=== PATIENT | male | born 1940 | race Caucasian/White ===

== ENCOUNTER 2021-07-08 11:24 | Emergency (ER) | payer MEDICARE, OTHER ==
[2021-07-08] MEDS ORDERED: Zofran 4 MG/2 ML VIAL IV ONE (11:27)
--- NOTE | 2021-07-08 11:27 | ERPHSYRPT ---
- History of Present Illness Time Seen by Provider: 07/08/21 11:27 Historian: patient Exam Limitations: no limitations Physician History: This is an 80-year-old white male who is diabetic and has hypothyroidism and presents with right flank pain that is been present for about a week. However, this morning the pain suddenly worsened and he is very uncomfortable. Patient has had to have lithotripsy in the past for his most recent ureterolithiasis. Patient denies chest pain. He denies abdominal pain and he denies shortness of breath. He has had no fevers or chills. Timing/Duration: today Activities at Onset: none Quality: aching, stabbing Abdominal Pain Onset Location: flank (Right) Pain Radiation: groin (Right) Severity of Pain-Max: moderate Severity of Pain-Current: moderate Modifying Factors: Improves With: nothing Associated Symptoms: No chest pain, No fever/chills, No nausea, No neck pain, No shortness of breath, No vomiting Previous symptoms: same symptoms as today, no recent treatment Allergies/Adverse Reactions: No Known Drug Allergies Allergy (Verified 07/08/21 11:40) Home Medications: Glipizide 10 mg [Glucotrol 10 MG] 10 mg PO DAILY 02/24/14 [History] Metformin HCl 500 mg [Glucophage 500 MG] 500 mg PO DAILY 02/24/14 [H istory] Atorvastatin Calcium [Lipitor 20MG Tablet] 20 mg PO DAILY 07/08/21 [History] Levothyroxine Sodium 112 Mcg [Synthroid 112 Mcg] 112 mcg PO DAILY 07/08/21 [History] Ramipril [Altace] 10 mg PO DAILY 07/08/21 [History] Hx Influenza Vaccination/Date Given: No Hx Pneumococcal Vaccination/Date Given: No Travel Risk - International Travel Have you traveled outside of the country in past 3 weeks: No - Coronavirus Screening Close contact with a COVID-19 positive Pt in past 14-21 Days: No - Review of Systems Constitutional: No Symptoms Eyes: No Symptoms Ears, Nose, & Throat: No Symptoms Respiratory: No Symptoms Cardiac: No Symptoms Abdominal/Gastrointestinal: No Symptoms Genitourinary Symptoms: Flank Pain Musculoskeletal: No Symptoms Skin: No Symptoms Neurological: No Symptoms Psychological: No Symptoms Endocrine: No Symptoms Hematologic/Lymphatic: No Symptoms Immunological/Allergic: No Symptoms All Other Systems: Reviewed and Negative - Past Medical History Pertinent Past Medical History: Yes Neurological History: No Pertinent History ENT History: No Pertinent History Cardiac History: Hypertension Respiratory History: No Pertinent History Endocrine Medical History: Diabetes Type II - Past Surgical History Past Surgical History: Yes Gastrointestinal: Appendectomy Musculoskeletal: Orthopedic Surgery - Social History Smoking Status: Never smoker Exposure to second hand smoke: No Drug Use: none Patient Lives Alone: No - Nursing Vital Signs Nursing Vital Signs: Initial Vital Signs Temperature 97.9 F 07/08/21 11:34 Pulse Rate 117 H 07/08/21 11:34 Respiratory Rate 22 07/08/21 11:34 Blood Pressure 166/116 07/08/21 11:34 O2 Sat by Pulse Oximetry 99 07/08/21 11:34 Pain Scale Pain Intensity [Right Lower 5 Back] Pain Intensity 5 - Physical Exam General Appearance: mild distress, alert, anxiety Eye Exam: PERRL/EOMI, eyes nml inspection Ears, Nose, Throat Exam: normal ENT inspection, moist mucous membranes Neck Exam: normal inspection, non-tender, supple, full range of motion Respiratory Exam: normal breath sounds, lungs clear, airway intact, No chest tenderness, No respiratory distress Cardiovascular Exam: tachycardia Gastrointestinal/Abdomen Exam: soft, normal bowel sounds, No tenderness Rectal Exam: not done Back Exam: normal inspection, normal range of motion, CVA tenderness, No vertebral tenderness (Right) Extremity Exam: normal inspection, normal range of motion, pelvis stable Neurologic Exam: alert, oriented x 3, cooperative, retirement specialist II-XII nml as tested, normal mood/affect, nml cerebellar function, nml station & gait, sensation nml Skin Exam: normal color, warm, dry Lymphatic Exam: No adenopathy SpO2 Interpretation: normal O2 Delivery: Room Air - Course Nursing assessment & vital signs reviewed: Yes Ordered Tests: Active Orders 24 hr Category Date Time Status IV Insertion STAT Care 07/08/21 11:27 Active ABDOMEN AND PELVIS W/0 CONTRAS [CT] Stat Exams 07/08/21 12:04 Completed AMYLASE Stat Lab 07/08/21 11:50 Completed CBC W DIFF Stat Lab 07/08/21 11:50 Completed CMP Stat Lab 07/08/21 11:50 Completed LIPASE Stat Lab 07/08/21 11:50 Completed Lactic Acid Stat Lab 07/08/21 11:50 Completed UA W/RFX UR CULTURE Stat Lab 07/08/21 11:34 Completed Medication Summary Generic Name Dose Route Start Last Admin Trade Name Avi PRN Reason Stop Dose Admin Sodium Chloride 1,000 mls @ 100 mls/hr 07/08/21 11:30 07/08/21 11:50 Sodium Chloride 0.9% 1000 Ml IV 08/07/21 11:29 100 mls/hr .Q10H CAMELIA Administration Discontinued Medications Generic Name Dose Route Start Last Admin Trade Name Avi PRN Reason Stop Dose Admin Hydromorphone HCl 0.5 mg 07/08/21 11:31 07/08/21 11:50 Hydromorphone 1 Mg/1ml Inj 1 Mg/Ml Syringe IV 07/08/21 11:32 0.5 mg STAT ONE Administration Hydromorphone HCl Confirm 07/08/21 11:47 Hydromorphone 1 Mg/1ml Inj 1 Mg/Ml Syringe Administered 07/08/21 11:48 Dose 1 mg .ROUTE .STK-MED ONE Ketorolac Tromethamine 30 mg 07/08/21 11:31 07/08/21 11:51 Ketorolac Tromethamine 30 Mg/Ml Inj IV 07/08/21 11:32 30 mg STAT ONE Administration Ketorolac Tromethamine Confirm 07/08/21 11:47 Ketorolac Tromethamine 30 Mg/Ml Inj Administered 07/08/21 11:48 Dose 30 mg .ROUTE .STK-MED ONE Ondansetron HCl 4 mg 07/08/21 11:27 07/08/21 11:50 Ondansetron Hcl 4 Mg/2 Ml Vial IV 07/08/21 11:28 4 mg STAT ONE Administration Ondansetron HCl Confirm 07/08/21 11:47 Ondansetron Hcl 4 Mg/2 Ml Vial Administered 07/08/21 11:48 Dose 4 mg .ROUTE .STK-MED ONE Lab/Rad Data: Laboratory Result Diagrams 07/08/21 11:50 07/08/21 11:50 Laboratory Results 07/08/21 07/08/21 07/08/21 Range/Units 11:50 11:50 11:50 WBC 5.2 (4.0-10.5) K/mm3 RBC 3.89 L (4.1-5.6) M/mm3 Hgb 13.2 (12.5-18.0) gm/dl Hct 39.2 L (42-50) % MCV 100.8 H (78-100) fl MCH 33.9 H (26-32) pg MCHC 33.7 (32-36) g/dl RDW 14.2 H (11.5-14.0) % Plt Count 230 (150-450) K/mm3 MPV 9.7 (7.5-11.0) fl Gran % 61.8 (36.0-66.0) % Eos # (Auto) 0.06 (0-0.5) Absolute Lymphs (auto) 1.31 (1.0-4.6) Absolute Monos (auto) 0.62 (0.0-1.3) Lymphocytes % 25.0 (24.0-44.0) % Monocytes % 11.9 (0.0-12.0) % Eosinophils % 1.1 (0.00-5.0) % Basophils % 0.2 (0.0-0.4) % Absolute Granulocytes 3.23 (1.4-6.9) Basophils # 0.01 (0-0.4) Sodium 136 L (137-145) mmol/L Potassium 5.5 H (3.5-5.1) mmol/L Chloride 97 L (98-107) mmol/L Carbon Dioxide 27 (22-30) mmol/L Anion Gap 17.9 H (5-15) MEQ/L BUN 24 H (9-20) mg/dL Creatinine 1.36 H (0.66-1.25) mg/dL Estimated GFR 53.6 ML/MIN Glucose 210 H (74-106) mg/dL Lactic Acid 2.9 H (0.4-2.0) Calcium 10.1 (8.4-10.2) mg/dL Total Bilirubin 0.60 (0.2-1.3) mg/dL AST 25 (17-59) U/L ALT 25 (0-50) U/L Alkaline Phosphatase 91 (38-126) U/L Serum Total Protein 7.8 (6.3-8.2) g/dL Albumin 4.8 (3.5-5.0) g/dL Amylase 86 (30-110) U/L Lipase 256 (23-300) U/L Urine Color (YELLOW) Urine Appearance (CLEAR) Urine pH (5-6) Ur Specific [place] (1.005-1.025) Urine Protein (Negative) Urine Ketones (NEGATIVE) Urine Blood (0-5) Humberto/ul Urine Nitrite (NEGATIVE) Urine Bilirubin (NEGATIVE) Urine Urobilinogen (0-1) mg/dL Ur Leukocyte Esterase (NEGATIVE) Urine WBC (Auto) (0-5) /HPF Urine RBC (Auto) (0-2) /HPF Urine Culture Reflexed (NO) Urine Glucose (NEGATIVE) mg/dL 07/08/21 Range/Units 11:34 WBC (4.0-10.5) K/mm3 RBC (4.1-5.6) M/mm3 Hgb (12.5-18.0) gm/dl Hct (42-50) % MCV (78-100) fl MCH (26-32) pg MCHC (32-36) g/dl RDW (11.5-14.0) % Plt Count (150-450) K/mm3 MPV (7.5-11.0) fl Gran % (36.0-66.0) % Eos # (Auto) (0-0.5) Absolute Lymphs (auto) (1.0-4.6) Absolute Monos (auto) (0.0-1.3) Lymphocytes % (24.0-44.0) % Monocytes % (0.0-12.0) % Eosinophils % (0.00-5.0) % Basophils % (0.0-0.4) % Absolute Granulocytes (1.4-6.9) Basophils # (0-0.4) Sodium (137-145) mmol/L Potassium (3.5-5.1) mmol/L Chloride (98-107) mmol/L Carbon Dioxide (22-30) mmol/L Anion Gap (5-15) MEQ/L BUN (9-20) mg/dL Creatinine (0.66-1.25) mg/dL Estimated GFR ML/MIN Glucose (74-106) mg/dL Lactic Acid (0.4-2.0) Calcium (8.4-10.2) mg/dL Total Bilirubin (0.2-1.3) mg/dL AST (17-59) U/L ALT (0-50) U/L Alkaline Phosphatase (38-126) U/L Serum Total Protein (6.3-8.2) g/dL Albumin (3.5-5.0) g/dL Amylase (30-110) U/L Lipase (23-300) U/L Urine Color YELLOW (YELLOW) Urine Appearance CLEAR (CLEAR) Urine pH 5.0 (5-6) Ur Specific [place] 1.014 (1.005-1.025) Urine Protein 30 (Negative) Urine Ketones TRACE (NEGATIVE) Urine Blood NEGATIVE (0-5) Humberto/ul Urine Nitrite NEGATIVE (NEGATIVE) Urine Bilirubin NEGATIVE (NEGATIVE) Urine Urobilinogen NEGATIVE (0-1) mg/dL Ur Leukocyte Esterase NEGATIVE (NEGATIVE) Urine WBC (Auto) NONE (0-5) /HPF Urine RBC (Auto) NONE (0-2) /HPF Urine Culture Reflexed NO (NO) Urine Glucose 150 (NEGATIVE) mg/dL - Progress Progress: improved, pain not gone completely Progress Note: 07/08/21 12:47 CAT scan of the abdomen and pelvis without contrast shows a right 1 cm partially calcified right renal cortical hypodense lesion. Recommendation is to obtain an ultrasound to differentiate solid versus cystic. This can be performed as an outpatient. There are no acute intra-abdominal or intrapelvic findings. There is calcified aorta without evidence of a abdominal aortic aneurysm. There is no evidence of a renal calculus or obstructive uropathy. 07/08/21 12:48 Counseled pt/family regarding: lab results, diagnosis, need for follow-up, rad results - Departure Departure Disposition: Home Clinical Impression: Right flank pain, Right renal mass Condition: Stable Critical Care Time: No Referrals: MATHIEU LAM [Primary Care Provider] - Follow up/PCP as directed Additional Instructions: Drink plenty of fluids. Follow-up with your urologist for further evaluation including an ultrasound of the right kidney. Continue your medications as prescribed.
[2021-07-08] MEDS ORDERED: Sodium Chloride 0.9% 1000 ML 1,000 ML IV SCH (11:30)
[2021-07-08] MEDS ORDERED: Hydromorphone 1 mg/ml Injection IV ONE (11:31)
[2021-07-08] MEDS ORDERED: TORAdol 30 mg Injection IV ONE (11:31)
[2021-07-08] MEDS ORDERED: Hydromorphone 1 mg/ml Injection ONE (11:47)
[2021-07-08] MEDS ORDERED: TORAdol 30 mg Injection ONE (11:47)
[2021-07-08] MEDS ORDERED: Sodium Chloride 0.9% 1000 ML 1,000 ML ONE (11:47)
[2021-07-08] MEDS ORDERED: Zofran 4 MG/2 ML VIAL ONE (11:47)
[2021-07-08 11:56] LABS: Appearance CLEAR (CLEAR); Bilirubin NEGATIVE (NEGATIVE); Blood NEGATIVE Ery/ul (0-5); Glucose 150 mg/dL (NEGATIVE); Ketones TRACE (NEGATIVE); Leukocyte Esterase NEGATIVE (NEGATIVE); Nitrite NEGATIVE (NEGATIVE); Protein,Urine Dip 30 (Negative); Specific Gravity 1.014 (1.005-1.025); Urobilinogen NEGATIVE mg/dL (0-1)
[2021-07-08 12:03] LABS: Absolute Neutrophil Ct (ANC) 3.23 (1.4-6.9); Basophil (Absolute #) 0.01 (0-0.4); Eosinophil % 1.1 % (0.00-5.0); Eosinophil (Absolute #) 0.06 (0-0.5); Hematocrit 39.2 % (42-50); Hemoglobin 13.2 gm/dl (12.5-18.0); Lymphocyte (Absolute #) 1.31 (1.0-4.6); Mean Cell Volume 100.8 fl (78-100); Mean Corpuscular Hemoglobin 33.9 pg (26-32); Mean Corpuscular Hgb Concent. 33.7 g/dl (32-36); Mean Platelet Volume 9.7 fl (7.5-11.0); Monocyte (Absolute #) 0.62 (0.0-1.3); Monocytes % 11.9 % (0.0-12.0); Neutrophil % 61.8 % (36.0-66.0); Platelet Count 230 K/mm3 (150-450); Red Blood Count 3.89 M/mm3 (4.1-5.6); Red Cell Distribution Width 14.2 % (11.5-14.0); White Blood Count 5.2 K/mm3 (4.0-10.5)
[2021-07-08 12:05] LABS: ALBUMIN 4.8 g/dL (3.5-5.0); ANION GAP 17.9 MEQ/L (5-15); BILIRUBIN,TOTAL 0.6 mg/dL (0.2-1.3); Calcium 10.1 mg/dL (8.4-10.2); Creatinine 1 1.36 mg/dL (0.66-1.25); EST GLOMERULAR FILTRATION RATE 53.6 ML/MIN; Potassium 5.5 mmol/L (3.5-5.1); Total Protein 7.8 g/dL (6.3-8.2)
--- NOTE | 2021-07-08 12:33 | XRAY ---
Indication: Right flank pain. History of stones. Multiple contiguous axial images obtained through the abdomen and pelvis without contrast using renal stone protocol. Comparison: None Lung bases demonstrates minimal bibasilar subsegmental atelectasis/scarring. No infiltrate or effusion. Heart not enlarged. No renal calculus or evidence for obstructive uropathy in either system. Right mid kidney demonstrates 1 cm partially calcified cortical hypodense lesion. Enlarged prostate gland impresses on the base of the bladder. Noncontrasted stomach and bowel loops appear nonobstructed. Small descending duodenal diverticulum. Appendectomy reported. Minimal scattered descending and sigmoid diverticulosis without diverticulitis. Tiny splenic calcified granulomas. No free fluid/air. Remaining liver, gallbladder, pancreas, spleen, adrenal glands, kidneys, ureters, and bladder are unremarkable for noncontrast exam. Minimal scattered aortoiliac calcifications without AAA. Osseous structures intact with multilevel bridging/nonbridging osteophytes of the visualized thoracolumbar spine. Mild degenerative changes both hips. Impression: 1. Negative renal calculus or evidence for obstructive uropathy. 2. 1 cm partially calcified right renal cortical hypodense lesion. Renal sonogram could differentiate solid versus cystic. 3. Incidental enlarged prostate gland, duodenal diverticulum, colonic diverticulosis, chronic bony findings, and old granulomatous disease.
[2021-07-08 13:12] VITALS: BP 188/97; PULSE 96; O2SAT 97
== END 2021-07-08 13:15 | disposition home or self-care (01) ==
LOC: ED 11:24
DX: N28.89 Other specified disorders of kidney and ureter (principal); R10.9 Unspecified abdominal pain; Z87.442 Personal history of urinary calculi; I10 Essential (primary) hypertension; E11.9 Type 2 diabetes mellitus without complications; Z79.84 Long term (current) use of oral hypoglycemic drugs; E03.9 Hypothyroidism, unspecified; Z79.899 Other long term (current) drug therapy
CPT/HCPCS: 36000; 36415; 74176; 80053; 81001; 82150; 83605; 83690; 85025; 96374; 96375; 99284; J1170; J1885; J2405

== ENCOUNTER 2024-02-04 11:45 | Emergency (ER) | payer MEDICARE, OTHER ==
[2024-02-04 12:00] VITALS: TEMP 97
--- NOTE | 2024-02-04 12:13 | ERPHSYRPT ---
- History of Present Illness Time Seen by Provider: 02/04/24 12:10 Source: patient Exam Limitations: no limitations Patient Subjective Stated Complaint: PT BROUGHT IN BY AMBULANCE FOR A GROUND FALL.HE STATES HE GOT DIZZY AND FELL LANDING FACE FIRST, NO LOC. PT IS GOING IN FEB TO HAVE TUBES PLACED IN EARS, Triage Nursing Assessment: PT ALERT, ARRIVED PER EMS, ORIENTED, SKIN W/D/P. HAS BRUISING TO RIGHT HAND,ABRASION TO LEFT HAND, AND HAS DRIED BLOOD TO NOSE, NO ACTIVE BLEEDING, MOVES ALL EXT WELL, NO TENDERNESS TO NECK, ABLE TO WALK TO BED Physician History: The patient, with a known history of an inner ear issues and upcoming surgery, presented with a recent fall due to dizziness and balance issues attributed to the inner ear condition. The fall occurred between the house and the garage, where they lost control and fell onto some stubs and mold. The patient reported weakness but denied any pain. They also mentioned a previous incident where they fell on their hands, causing some discomfort in their finger, but they were still able to bend it. The patient had taken two ibuprofens around 10 am for symptom management. Occurred: just prior to arrival Reason for Fall: became dizzy (known inner ear issue, scheduled for surgery next week) Injuries/Pain Location: head, face, upper extremity (b/l hands) Loss of Consciousness: no loss of consciousness Quality: throbbing Severity of Pain-Max: mild Severity of Pain-Current: mild Modifying Factors: Worsens With: nothing Associated Symptoms (Fall): denies symptoms Allergies/Adverse Reactions: No Known Drug Allergies Allergy (Verified 02/04/24 11:59) Home Medications: Glipizide 10 mg [Glucotrol 10 MG] 10 mg PO DAILY 02/24/14 [History] Metformin HCl 500 mg [Glucophage 500 MG] 500 mg PO DAILY 02/24/14 [History] Atorvastatin Calcium [Lipitor 20MG Tablet] 20 mg PO DAILY 07/08/21 [History] Levothyroxine Sodium 112 Mcg [Synthroid 112 Mcg] 112 mcg PO DAILY 07/08/21 [History] Ramipril [Altace] 10 mg PO DAILY 07/08/21 [History] Hx Tetanus, Diphtheria Vaccination/Date Given: No Hx Influenza Vaccination/Date Given: No Hx Pneumococcal Vaccination/Date Given: No Immunizations Up to Date: Yes Travel Risk - International Travel Have you traveled outside of the country in past 3 weeks: No - Emerging Infectious Disease Are you exhibiting symptoms associated with any current EIDs: No - Review of Systems All Other Systems: Reviewed and Negative - Past Medical History Pertinent Past Medical History: Yes Neurological History: No Pertinent History ENT History: No Pertinent History Cardiac History: Hypertension Respiratory History: No Pertinent History Endocrine Medical History: Diabetes Type II Other Medical History: INNER EAR GETTING TUBES 2023 - Past Surgical History Past Surgical History: Yes Gastrointestinal: Appendectomy Musculoskeletal: Orthopedic Surgery - Social History Smoking Status: Never smoker Exposure to second hand smoke: No Drug Use: none Patient Lives Alone: No - Social Determinants of Health Will the patient participate in the screening: Declined to provide - Nursing Vital Signs Nursing Vital Signs: Initial Vital Signs Temperature 97 F 02/04/24 12:00 Pulse Rate 60 02/04/24 12:00 Respiratory Rate 16 02/04/24 12:00 Blood Pressure 161/68 02/04/24 12:00 O2 Sat by Pulse Oximetry 97 02/04/24 12:00 Pain Scale Pain Intensity 0 - Ann Coma Score Best Eye Response ([place]): (4) open spontaneously Best Verbal Response (Ann): (5) oriented Best Motor Response (Ann): (6) obeys commands Ann Total: 15 - Physical Exam General Appearance: no apparent distress Head Injury: no evidence of injury Eye Exam: PERRL/EOMI, eyes nml inspection ENT Exam: airway nml, other (dried nasal blood) Neck Exam: supple, trachea midline, full range of motion, normal alignment, No tenderness Respiratory/Chest Exam: No respiratory distress Extremity Exam: normal inspection, normal range of motion, capillary refill <3 sec, contusions (right finger) Neurologic Exam: alert, oriented x 3, cooperative, enlisted aircrew/aerial observer/gunner II-XII nml as tested, normal mood/affect, nml cerebellar function, nml station & gait, sensation nml Skin Exam: normal color, warm, dry SpO2 Interpretation: normal SpO2: 97 O2 Delivery: Room Air - Course Nursing assessment & vital signs reviewed: Yes - CT Exams Head CT Interpretation: Tele-radiologist Report, No Fracture, No/Intracranial Hemorrhag - Progress Progress: improved Progress Note: Neurologically intact, CT head neg, patient has no complaints. Declines XR of right hand, he is able to move w/o pain. Recommend f/u w/ PCP in 3-[address] did show chronic sinusitis and patient reports sinus drainage and facial pain. Prescribed Doxy and Medrol pack. Counseled pt/family regarding: diagnosis, need for follow-up, rad results Medical Desision Making - Diagnostic Testing Diagnostic test were ordered, analyzed, and reviewed by me: Yes Radiological Interpretation: Reviewed by me, Teleradiologist Report - Risk of complications Low Risk: Low risk of morbidity from additional dx testing or treatment - Departure Departure Disposition: Home Clinical Impression: Fall, Sinusitis Condition: Good Critical Care Time: No Referrals: MATHIEU LAM [Primary Care Provider] - Follow up/PCP as directed Instructions: Preventing falls in adults Prescriptions: Methylprednisolone 4 mg [Medrol 4 mg] 4 mg PO DAILY #1 packet Doxycycline Hyclate 100 mg [Vibramycin 100 MG] 100 mg PO BID 10 Days #20 tab
--- NOTE | 2024-02-04 13:42 | XRAY ---
CLINICAL HISTORY: fall, trauma COMPARISON: None. TECHNIQUE: Axial non-contrast CT scan of the brain was performed from the skull base to the high parietal region with coronal and sagittal reformats. One of the following dose reduction techniques was utilized for this exam: Automated exposure control, adjustment of the mA and/or kV according to patient size, use of iterative reconstruction. FINDINGS: Brain Parenchyma: Normal attenuation of the cerebral hemispheres, cerebellum, and brainstem. No evidence of acute infarct, hemorrhage, or mass effect. No abnormal areas of hypo- or hyperattenuation. Ventricular System: The ventricles and subarachnoid spaces are prominent in size due to age-related atrophic changes. No evidence of hydrocephalus. Subarachnoid Spaces: No evidence of subarachnoid hemorrhage or extra-axial fluid collections. Cerebellum and Brainstem: Normal size and signal. No masses. Orbits: Normal appearance of the globes, optic nerves, and extraocular muscles. No evidence of orbital masses. Sinuses: Left frontal sinus 8 mm osteoma. Mucosal thickening is seen in both maxillary and ethmoidal sinuses representing sinusitis. Deviated nasal septum towards left side. Mastoid Air Cells: Opacified right mastoid air cells suggestive of chronic otomastoiditis. Skull and Meninges: No fractures or dislocation. 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 Clinical correlation and follow-up are advised. No evidence of meningeal thickening. IMPRESSION: 1. No evidence of acute infarct, hemorrhage, or mass effect. 2. No fractures or dislocation. 3. Changes of maxillary and ethmoid chronic sinusitis. 4. Left frontal sinus 8 mm osteoma. 5. Opacified right mastoid air cells suggestive of chronic mastoiditis. 6. 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 Clinical correlation and follow-up are advised. Electronically Signed by: Silas Palma MD. (02/04/2024 13:38:28 EDT)
[2024-02-04 14:19] VITALS: BP 119/67; PULSE 87; RESP 23; O2SAT 97
== END 2024-02-04 14:39 | disposition home or self-care (01) ==
LOC: ED 11:45
DX: Z04.3 Encounter for examination and observation following other accident (principal); J32.9 Chronic sinusitis, unspecified; R42 Dizziness and giddiness; R53.1 Weakness; I10 Essential (primary) hypertension; E11.9 Type 2 diabetes mellitus without complications; Z79.84 Long term (current) use of oral hypoglycemic drugs; Z79.52 Long term (current) use of systemic steroids; Z79.899 Other long term (current) drug therapy
CPT/HCPCS: 70450; 99283

== ENCOUNTER 2025-02-12 12:09 | Observation (INO) | payer MEDICARE, OTHER ==
[2025-02-12 15:43] LABS: BASOPHIL % 0.4 % (0.2-1.2); Basophil (Absolute #) 0.02 x10^3/uL (0.01-0.08); Eosinophil (Absolute #) 0.18 x10^3/uL (0.04-0.54); Hematocrit 32.5 % (40.1-51.0); Hemoglobin 10.5 g/dL (13.7-17.5); IMMATURE GRAN # 0.03 x10^3u/L (0.001-0.031); IMMATURE GRAN % 0.6 % (0.001-0.429); Lymphocyte (Absolute #) 1.23 x10^3/uL (1.32-3.57); Mean Corpuscular Hemoglobin 31.7 pg (25.7-32.2); Mean Corpuscular Hgb Concent. 32.3 g/dL (32.3-36.5); Monocyte (Absolute #) 0.65 x10^3/uL (0.30-0.82); NUCLEATED RBC # 0.00 x10^3u/L (0.00-0.012); NUCLEATED RBC % 0.0 % (0.00-0.2); Platelet Count 207 x10^3/uL (163-337); Red Blood Count 3.31 x10^6/uL (4.63-6.08); White Blood Count 5.1 x10^3/uL (4.23-9.07)
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
[2025-02-12 15:56] LABS: Calcium 10.0 mg/dL (8.4-10.2); Carbon Dioxide 18.0 mmol/L (22-30); Creatinine 1 3.23 mg/dL (0.66-1.25); EST GLOMERULAR FILTRATION RATE 18.2 ML/MIN; Glucose 107.0 mg/dL (74-106); SGOT/AST 29.0 U/L (17-59); SGPT/ALT 30.0 U/L (0-50); Total Protein 7.4 g/dL (6.3-8.2)
[2025-02-12 16:00] LABS: Potassium 6.6 mmol/L (3.5-5.1)
[2025-02-12] MEDS ORDERED: PROVENTIL 2.5 MG/3 ML NEB IH ONE ×2 (16:17→16:22)
[2025-02-12] MEDS: PROVENTIL 2.5 MG/3 ML NEB IH ONE (16:21)
[2025-02-12] MEDS ORDERED: Calcium Gluconate 10% 1000 MG IV ONE (16:49)
[2025-02-12] MEDS ORDERED: HUMULIN R ONE (16:52)
[2025-02-12] MEDS ORDERED: D50W 50 ml Abboject IV ONE (16:53)
[2025-02-12] MEDS: Calcium Gluconate 10% 1000 MG IV ONE (16:54)
[2025-02-12] MEDS: D50W 50 ml Abboject IV ONE (16:54)
--- NOTE | 2025-02-12 16:54 | XRAY ---
Indication: Acute renal failure. Comparison: September 03, 2024 Portable chest again hyperinflated and is now clear. Heart not enlarged for AP portable technique. Bony thorax intact again with osteopenia and mild degenerative changes. No acute findings.
[2025-02-12] MEDS: HUMULIN R IV ONE (16:55)
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
[2025-02-12 19:06] LABS: Calcium 9.4 mg/dL (8.4-10.2); Creatinine 1 3.17 mg/dL (0.66-1.25); EST GLOMERULAR FILTRATION RATE 18.6 ML/MIN; Glucose 182 mg/dL (74-106); SGOT/AST 25 U/L (17-59); SGPT/ALT 28 U/L (0-50); Total Protein 6.7 g/dL (6.3-8.2)
[2025-02-12 19:21] LABS: Carbon Dioxide 15 mmol/L (22-30); Potassium 5.9 mmol/L (3.5-5.1)
[2025-02-12] MEDS ORDERED: SODIUM BICARBONATE PO ONE (20:17)
[2025-02-12] MEDS: SODIUM BICARBONATE PO STA (20:32)
[2025-02-12] MEDS ORDERED: Toprol-Xl 25MG Tablets ONE (22:23)
[2025-02-12] MEDS ORDERED: HEPARIN 5000 UNITS/0.5 ML (HIGH RISK MED) ONE (22:23)
[2025-02-12] MEDS ORDERED: NYSTOP 30 GM CREAM ONE (22:24)
[2025-02-12] MEDS: HEPARIN 5000 UNITS/0.5 ML (HIGH RISK MED) SQ SCH (22:30)
[2025-02-12] MEDS: NYSTOP 30 GM CREAM TOP SCH (22:32)
[2025-02-12] MEDS: Toprol-Xl 25MG Tablets PO SCH (22:32)
[2025-02-12 22:35] LABS: Glucose, Urine 100 mg/dL (Negative); Protein,Urine Dip Negative (Negative); RBC 0-2 /HPF (0-5); WBC 0-2 /HPF (0-5)
[2025-02-13 02:54] LABS: Hematocrit 28.0 % (40.1-51.0); Hemoglobin 8.9 g/dL (13.7-17.5); Mean Corpuscular Hemoglobin 31.4 pg (25.7-32.2); Mean Corpuscular Hgb Concent. 31.8 g/dL (32.3-36.5); Platelet Count 164 x10^3/uL (163-337); Red Blood Count 2.83 x10^6/uL (4.63-6.08); White Blood Count 4.8 x10^3/uL (4.23-9.07)
[2025-02-13 03:09] LABS: CK-Creatinine Phosphokinase 49.0 U/L (55-170); Calcium 9.4 mg/dL (8.4-10.2); Carbon Dioxide 19.0 mmol/L (22-30); Creatinine 1 2.79 mg/dL (0.66-1.25); EST GLOMERULAR FILTRATION RATE 21.7 ML/MIN; Glucose 91.0 mg/dL (74-106); SGOT/AST 26.0 U/L (17-59); SGPT/ALT 25.0 U/L (0-50); Total Protein 6.3 g/dL (6.3-8.2)
[2025-02-13 03:16] LABS: Potassium 6.5 mmol/L (3.5-5.1)
[2025-02-13] MEDS ORDERED: Kayexylate 15 GM/60 ML ONE ×2 (03:42→08:29)
[2025-02-13] MEDS: Kayexylate 15 GM/60 ML PO PRN (03:44)
[2025-02-13] MEDS ORDERED: ECOTRIN 81 MG PO ONE (09:07)
[2025-02-13] MEDS ORDERED: SYNTHROID 75 MCG ONE (09:07)
[2025-02-13] MEDS ORDERED: PLAVIX Tablet ONE (09:07)
[2025-02-13] MEDS ORDERED: Ocuvite Tablet ONE (09:07)
[2025-02-13] MEDS ORDERED: SODIUM BICARBONATE PO ONE (09:07)
[2025-02-13] MEDS ORDERED: HEPARIN 5000 UNITS/0.5 ML (HIGH RISK MED) ONE (09:08)
[2025-02-13] MEDS ORDERED: Flonase NASAL NS ONE (09:08)
[2025-02-13] MEDS ORDERED: FEOSOL 325 MG ONE (09:08)
[2025-02-13] MEDS: FEOSOL 325 MG PO SCH (09:21)
[2025-02-13] MEDS: Ocuvite Tablet PO SCH (09:21)
[2025-02-13] MEDS: SYNTHROID 75 MCG PO SCH (09:21)
[2025-02-13] MEDS: PLAVIX Tablet PO SCH (09:22)
[2025-02-13] MEDS: ECOTRIN 81 MG PO SCH (09:23)
[2025-02-13] MEDS: SODIUM BICARBONATE PO SCH (09:23)
[2025-02-13] MEDS: Flonase NASAL NS SCH (09:26)
--- NOTE | 2025-02-13 10:30 | XRAY ---
Indication: Acute on chronic kidney disease. Two-dimensional renal sonogram performed. Comparison: None Both kidneys are normal in reniform shape with normal color perfusion. Right kidney measures 12.5 x 5.0 x 4.7 cm and left measures 12.5 x 5.9 x 4.5 cm. Right kidney demonstrates at least 2 small 1.2 cm cortical cysts. No focal solid renal mass or hydronephrosis. Corticomedullary differentiation preserved. Normally distended urinary bladder is grossly unremarkable. Normal bilateral ureteral jets. Impression: Right renal cysts. Remaining renal sonogram is negative.
[2025-02-13 10:39] LABS: IFOB TEST RESULTS NEGATIVE (NEGATIVE)
--- NOTE | 2025-02-13 14:16 | PCM.NOTE ---
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 HYPERTENSION
[2025-02-13] MEDS: Protonix 40MG Tablet PO SCH (21:09)
[2025-02-14] MEDS: Kayexylate 15 GM/60 ML PO ONE (00:46)
[2025-02-14] MEDS: HUMULIN R SQ ONE (00:46)
[2025-02-14] MEDS: D50W 50 ml Abboject IV ONE (00:46)
[2025-02-14 05:40] LABS: Hematocrit 29.0 % (40.1-51.0); Hemoglobin 9.2 g/dL (13.7-17.5); Mean Corpuscular Hemoglobin 31.0 pg (25.7-32.2); Mean Corpuscular Hgb Concent. 31.7 g/dL (32.3-36.5); Platelet Count 182 x10^3/uL (163-337); Red Blood Count 2.97 x10^6/uL (4.63-6.08); White Blood Count 3.9 x10^3/uL (4.23-9.07)
[2025-02-14 06:07] LABS: Calcium 9.6 mg/dL (8.4-10.2); Carbon Dioxide 20.0 mmol/L (22-30); Creatinine 1 1.97 mg/dL (0.66-1.25); EST GLOMERULAR FILTRATION RATE 32.9 ML/MIN; Glucose 87.0 mg/dL (74-106); Potassium 4.8 mmol/L (3.5-5.1); SGOT/AST 26.0 U/L (17-59); SGPT/ALT 27.0 U/L (0-50); Total Protein 6.5 g/dL (6.3-8.2)
[2025-02-14 07:49] VITALS: RESP 17
[2025-02-14] MEDS: APRESOLINE 20 MG/ML INJ IV PRN (09:24)
[2025-02-14 11:50] VITALS: PULSE 68; TEMP 97.6; O2SAT 97
[2025-02-14] MEDS: HUMALOG SQ PRN (12:00)
--- NOTE | 2025-02-14 12:34 | PCM.DS ---
Discharge Summary Date of Admission: 02/12/25 17:23 Date of Discharge: 02/14/25 Admitting Physician: CHERYLE SPEARS MD Consults: Consults on Case 02/12/25 17:47 Consult Nephrology ROUTINE Primary Care Provider: VERONICA KHAN Allergies Allergies No Known Drug Allergies Allergy (Verified 02/05/25 10:43) Hospital Summary - Hospital Course Hospital Course: 02/12/25 is a 84-year-old male with a past medical history of hypertension, congestive heart failure, type II diabetes mellitus, vitamin B12 deficiency, iron deficiency anemia, and vitamin D deficiency was admitted on 02/12/25 for evaluation of abnormal laboratory results. He reported being informed of an elevated potassium level but delayed seeking care for 2448 hours due to personal circumstances. He denied chest pain, shortness of breath, nausea, vomiting, or diarrhea but endorsed generalized weakness in both lower extremities. His history was also notable for a recent right lower quadrant/perineal abscess treated with antibiotics, ongoing terbinafine use for onychomycosis, and topical nystatin for a yeast infection in the left axilla. He has a history of kidney stones and follows with urology in [place], [place], but has never been evaluated by nephrology. Initial laboratory results in the emergency department revealed potassium 6.6, CO? 18, anion gap 18.9, and creatinine 3.23 (baseline 1.51), consistent with acute kidney injury and hyperkalemia. He was treated with calcium gluconate, insulin with D50, IV fluids, and a breathing treatment, with plans to closely trend potassium levels. On 02/13, his potassium remained elevated at 6.5 and he was treated with oral Kayexalate. Hemoglobin dropped to 8.9 with a history of dark stools, and occult stool testing was sent. Protonix was started twice daily. Post-void residual was 5 mL, and renal ultrasound showed right renal cysts but was otherwise unremarkable. CO2 remained low at 19, and oral bicarbonate was initiated twice daily. His creatinine improved to 2.79, and he was maintained on gentle IV hydration due to his history of CHF. He denied chest pain, shortness of breath, abdominal pain, nausea, or vomiting. By 02/14, the patient was clinically improved, ambulating in his room and reporting feeling better. His creatinine improved further to 1.97, potassium normalized to 4.8, and hemoglobin improved to 9.2. Occult stool was negative. Improved CO2 at 20. He had refused IV blood pressure medications the previous night but accepted oral medications the following morning, and his regimen was adjusted by changing Toprol XL to metoprolol tartrate twice daily. A nephrology follow-up appointment was arranged as the inpatient consult did not occur, and his care team and family plan to meet with Dr. Adkins on Monday to review his medications and follow-up needs. Nephrotoxic medications remain on hold, and outpatient labs will be required for continued monitoring. His plan of care was reviewed in detail with his children. At discharge, the patient was stable, denied any further concerns, and will continue follow-up with nephrology and Dr. Adkins as an outpatient. - Vitals & Intake/Output Vital Signs: Vital Signs Temperature 97.6 F 02/14/25 11:48 Pulse Rate 68 02/14/25 11:48 Respiratory Rate 17 02/14/25 11:48 Blood Pressure 172/75 02/14/25 11:48 O2 Sat by Pulse Oximetry 97 02/14/25 11:48 Intake & Output: Intake & Output 02/12/25 02/13/25 02/14/25 02/15/25 11:59 11:59 11:59 11:59 Intake Total 1183 4084 Output Total 500 900 Balance 683 3184 Weight 103.2 kg - Lab Result Diagrams: 02/14/25 05:30 02/14/25 05:30 Lab Results-Last 24 Hrs: Lab Results-Last 24 Hours 02/13/25 02/13/25 02/13/25 Range/Units 16:00 16:38 22:00 WBC (4.23-9.07) x10^3/uL RBC (4.63-6.08) x10^6/uL Hgb (13.7-17.5) g/dL Hct (40.1-51.0) % MCV (79.0-92.2) fL MCH (25.7-32.2) pg MCHC (32.3-36.5) g/dL RDW (11.6-14.4) % Plt Count (163-337) x10^3/uL MPV (9.4-12.4) fL Sodium (135-145) mmol/L Potassium 6.0 H* 5.7 H (3.5-5.1) mmol/L Chloride (98-107) mmol/L Carbon Dioxide (22-30) mmol/L Anion Gap (5-15) MEQ/L BUN (9-20) mg/dL Creatinine (0.66-1.25) mg/dL Estimated GFR ML/MIN Glucose (74-106) mg/dL POC Glucometer 94 (74 to 106) mg/dL Calcium (8.4-10.2) mg/dL Magnesium (1.6-2.3) mg/dL Total Bilirubin (0.2-1.3) mg/dL AST (17-59) U/L ALT (0-50) U/L Alkaline Phosphatase (38-126) U/L Serum Total Protein (6.3-8.2) g/dL Albumin (3.5-5.0) g/dL 02/13/25 02/14/25 02/14/25 Range/Units 22:02 02:52 05:30 WBC 3.9 L (4.23-9.07) x10^3/uL RBC 2.97 L (4.63-6.08) x10^6/uL Hgb 9.2 L (13.7-17.5) g/dL Hct 29.0 L (40.1-51.0) % MCV 97.6 H (79.0-92.2) fL MCH 31.0 (25.7-32.2) pg MCHC 31.7 L (32.3-36.5) g/dL RDW 12.3 (11.6-14.4) % Plt Count 182 (163-337) x10^3/uL MPV 10.2 (9.4-12.4) fL Sodium (135-145) mmol/L Potassium (3.5-5.1) mmol/L Chloride (98-107) mmol/L Carbon Dioxide (22-30) mmol/L Anion Gap (5-15) MEQ/L BUN (9-20) mg/dL Creatinine (0.66-1.25) mg/dL Estimated GFR ML/MIN Glucose (74-106) mg/dL POC Glucometer 125 H 79 (74 to 106) mg/dL Calcium (8.4-10.2) mg/dL Magnesium (1.6-2.3) mg/dL Total Bilirubin (0.2-1.3) mg/dL AST (17-59) U/L ALT (0-50) U/L Alkaline Phosphatase (38-126) U/L Serum Total Protein (6.3-8.2) g/dL Albumin (3.5-5.0) g/dL 02/14/25 02/14/25 02/14/25 Range/Units 05:30 07:19 11:33 WBC (4.23-9.07) x10^3/uL RBC (4.63-6.08) x10^6/uL Hgb (13.7-17.5) g/dL Hct (40.1-51.0) % MCV (79.0-92.2) fL MCH (25.7-32.2) pg MCHC (32.3-36.5) g/dL RDW (11.6-14.4) % Plt Count (163-337) x10^3/uL MPV (9.4-12.4) fL Sodium 136 (135-145) mmol/L Potassium 4.8 (3.5-5.1) mmol/L Chloride 108 H (98-107) mmol/L Carbon Dioxide 20 L (22-30) mmol/L Anion Gap 12.9 (5-15) MEQ/L BUN 35 H (9-20) mg/dL Creatinine 1.97 H (0.66-1.25) mg/dL Estimated GFR 32.9 ML/MIN Glucose 87 (74-106) mg/dL POC Glucometer 83 157 H (74 to 106) mg/dL Calcium 9.6 (8.4-10.2) mg/dL Magnesium 1.8 (1.6-2.3) mg/dL Total Bilirubin 0.10 L (0.2-1.3) mg/dL AST 26 (17-59) U/L ALT 27 (0-50) U/L Alkaline Phosphatase 71 (38-126) U/L Serum Total Protein 6.5 (6.3-8.2) g/dL Albumin 3.9 (3.5-5.0) g/dL Micro Results-Entire Visit: Accuchecks Date 02/14/25 Date 02/14/25 Date 02/13/25 Time 11:48 Time 07:48 - Radiology Exams Ordered Rad Exams-Entire Visit: Radiology Procedures Category Date Time Status CHEST 1 VIEW (PORTABLE) Stat Exams 02/12/25 15:35 Completed KIDNEY [US] Routine Exams 02/13/25 08:00 Completed - Procedures and Test Procedures and Tests throughout Hospitalization: Therapy Orders & Screens 02/12/25 19:32 Respiratory Therapy Consult ONCE Comment: Reason For Exam: Diagnosis: hyperkalemia, acute renal failure Discharge Exam General Appearance: no apparent distress, alert, obese Neurologic Exam: alert, oriented x 3, cooperative, normal mood/affect, nml cerebellar function, sensation nml, No motor deficits Eye Exam: PERRL, EOMI, eyes nml inspection Ears, Nose, Throat Exam: normal ENT inspection, pharynx normal, moist mucous membranes Neck Exam: normal inspection, non-tender, supple, full range of motion Respiratory Exam: normal breath sounds, lungs clear, No respiratory distress Cardiovascular Exam: regular rate/rhythm, normal heart sounds Gastrointestinal/Abdomen Exam: soft, No tenderness, No mass Male Genitalia Exam: deferred Rectal Exam: deferred Back Exam: normal inspection, normal range of motion, No CVA tenderness, No vertebral tenderness Extremity Exam: normal inspection, normal range of motion Skin Exam: normal color, warm, dry Final Diagnosis/Problem List - Final Discharge Diagnosis/Problem (1) Acute on chronic renal failure Current Visit: Yes Status: Acute Code(s): N17.9 - ACUTE KIDNEY FAILURE, UNSPECIFIED; N18.9 - CHRONIC KIDNEY DISEASE, UNSPECIFIED (2) Hyperkalemia Current Visit: Yes Status: Acute Code(s): E87.5 - HYPERKALEMIA (3) Dehydration Current Visit: Yes Status: Acute Code(s): E86.0 - DEHYDRATION (4) Yeast dermatitis Current Visit: Yes Status: Acute Code(s): B37.2 - CANDIDIASIS OF SKIN AND NAIL (5) Skin lesion Current Visit: Yes Status: Acute Code(s): L98.9 - DISORDER OF THE SKIN AND SUBCUTANEOUS TISSUE, UNSPECIFIED (6) Toenail fungus Current Visit: Yes Status: Chronic Code(s): B35.1 - TINEA UNGUIUM (7) Hypothyroidism Current Visit: Yes Status: Chronic Code(s): E03.9 - HYPOTHYROIDISM, UNSPECIFIED (8) Type II diabetes mellitus Current Visit: Yes Status: Chronic (9) Metabolic acidosis Current Visit: Yes Status: Acute Code(s): E87.20 - ACIDOSIS, UNSPECIFIED (10) Anemia Current Visit: Yes Status: Acute Code(s): D64.9 - ANEMIA, UNSPECIFIED (11) Obesity (BMI 30.0-34.9) Current Visit: Yes Status: Acute Code(s): E66.811 - OBESITY, CLASS 1 (12) HTN (hypertension) Current Visit: Yes Status: Chronic Assessment & Plan: (1) Acute on chronic renal failure Current Visit: Yes Status: Acute Assessment & Plan: - Creat 3.23- BL 1.51 - Nephro consult - IVF - Hold nephro toxic meds 02/13 - Creat 2.79- improving - CBC, CMP reviewed - Nephro consult pending - IVF - Post void residual 5ml - US kidneys: Impression: Right renal cysts. Remaining renal sonogram is negative. 02/14 - Nephro did not see pt - Creat 1.97- improved - F/U with nephro as scheduled OP - Discuss home meds and when to restart with PCP and nephro at appointments. Code(s): N17.9 - ACUTE KIDNEY FAILURE, UNSPECIFIED; N18.9 - CHRONIC KIDNEY DISEASE, UNSPECIFIED (2) Hyperkalemia Current Visit: Yes Status: Acute Assessment & Plan: - K+ 6.6 on admission - Reviewed ER plan of care - Recheck K+ and give meds accordingly to bring down - Nephro consult - IVF - TELE - EKG - Low potassium diet - Hold spirolactone 02/13 - K+ 6.5- kayexylate PO gave- recheck in 8 hrs - Awaiting nephro recs 02/14 - Resolved Code(s): E87.5 - HYPERKALEMIA (3) Dehydration Current Visit: Yes Status: Acute Assessment & Plan: - Anion gap 18.9 - gentle IV hydration 02/13 - Anion gap improved 13.8 - Continued CHAPO 02/14 - Anion gap 12.9 - Creat improved Code(s): E86.0 - DEHYDRATION (4) Yeast dermatitis Current Visit: Yes Status: Acute Assessment & Plan: - Left axilla - Nystatin cream- pillow case Code(s): B37.2 - CANDIDIASIS OF SKIN AND NAIL (5) Skin lesion Current Visit: Yes Status: Acute Assessment & Plan: - RLQ of abd.- appears to be healing - Stop antibiotics Code(s): L98.9 - DISORDER OF THE SKIN AND SUBCUTANEOUS TISSUE, UNSPECIFIED (6) Toenail fungus Current Visit: Yes Status: Chronic Assessment & Plan: - Stop terbinafine - Has been taking med for 2 months now - CK 49 Code(s): B35.1 - TINEA UNGUIUM (7) Hypothyroidism Current Visit: Yes Status: Chronic Assessment & Plan: - Continue synthroid Code(s): E03.9 - HYPOTHYROIDISM, UNSPECIFIED (8) Type II diabetes mellitus Current Visit: Yes Status: Chronic Qualifiers: Diabetes mellitus ocean transportation intermediary insulin use: without ocean transportation intermediary use Assessment & Plan: - Hold oral meds - Start S/S insulin - Accuchecks AC/HS - A1C 01/03/25 7.43- controlled (9) Metabolic acidosis Current Visit: Yes Status: Acute Assessment & Plan: - Co2 19 - Started oral sodium bicarb - 2:2 CHAPO 02/14 - CO2 20 - Will d/c with bicarb PO Code(s): E87.20 - ACIDOSIS, UNSPECIFIED (10) Anemia Current Visit: Yes Status: Acute Qualifiers: Anemia type: iron deficiency Assessment & Plan: - Pt reporting dark stools - Drop in hgb from 10.5-8.9 overnight - Occult stool negative - Protonix BID - Continue ferrous sulfate for iron def anemia. 02/14 - Occult stool negative - Hgb 9.2- stable Code(s): D64.9 - ANEMIA, UNSPECIFIED (11) Obesity (BMI 30.0-34.9) Current Visit: Yes Status: Acute Assessment & Plan: - Advised diet and exercise control Code(s): E66.811 - OBESITY, CLASS 1 (12) HTN (hypertension) Current Visit: Yes Status: Chronic Assessment & Plan: - Hold HCTZ, Lasix - Continue metoprolol - Hydralizine IV PRN for BP > 160/90 02/14 - Refused BP medication last night per nursing note - Metoprolol changed to tartrate BID D/C meds: Bicarb PO BID, Metoprolol 25mg BID, changed Altace and Glimepiride to lower doses, stop several meds- see med list Code(s): I10 - ESSENTIAL (PRIMARY) HYPERTENSION - Discharge Discharge Date: 02/14/25 Disposition: Home, Self-Care Condition: Stable Prescriptions: New Metoprolol Tartrate 25 mg [Lopressor 25MG Tab] 25 mg PO BID 30 Days #60 tablet Sodium Bicarbonate 650 mg PO BID 3 Days #6 tablet Continue Nystatin Powder 15 gm [Nystop Powder 15 gm] 60 gm TP TID #1 unit Alfuzosin HCl [Alfuzosin HCl ER] 10 mg PO DAILY Cholecalciferol (Vitamin D3) [Vitamin D3 Max] 125 mcg PO DAILY Ferrous Sulfate 325 mg [Feosol 325 mg] 325 mg PO DAILY Clopidogrel Bisulfate [Clopidogrel] 75 mg PO DAILY Fluticasone Propionate [Flonase NASAL] 2 sprays IH DAILY Aspirin EC 81 mg [Ecotrin 81 mg] 81 mg PO DAILY Atorvastatin Calcium 10 mg PO DAILY Levothyroxine Sodium 150 mg PO QAM [place]-3/Dha/Epa/Lut/Zeaxanthin [[facility] Softgel] 1 each PO DAILY Discontinued ramipriL [Altace] 10 mg PO DAILY hydroCHLOROthiazide [Hydrochlorothiazide] 12.5 mg PO DAILY Furosemide [Lasix] 40 mg PO DAILY Metoprolol Succinate 25 mg Xl* [Toprol-Xl 25MG Tablets] 25 mg PO QHS Glimepiride 2 mg [Amaryl 2 MG] 4 mg PO BID Cephalexin Mh 500 mg [Keflex 500 mg] 1,000 mg PO BID Spironolactone 50 mg PO DAILY Metformin HCl [Metformin ER Gastric] 2,000 mg PO DAILY Instructions: Acute kidney injury, Hyperkalemia Additional Instructions: Eat a low potassium diet. Stop taking medication for toenail fungus at this time. - terbinafine Follow up with: WILLIAM POWER MD [CONSULTING PHYSICIAN, NEPHROLOGY] - Office will call patient Referral Note: A referral has been sent to this office. They will call you with an appointment. VERONICA KHAN MD [Primary Care Provider, [facility]ILY [facility]ACTICE] - 02/18/25 3:30 pm Forms: Discharge Instructions
[2025-02-14] MEDS: Lopressor 25MG Tab PO SCH (13:16)
[2025-02-14 14:22] VITALS: BP 145/64
[2025-02-14] MEDS ORDERED: Lopressor 25MG Tab PO SCH (22:00)
== END 2025-02-14 15:37 | disposition home or self-care (01) ==
LOC: ED 12:09 → MED SURG 17:23
PROVIDERS: ADMIT Internal Medicine; ATTEND Internal Medicine
DX: E11.22 Type 2 diabetes mellitus with diabetic chronic kidney disease (principal); I13.0 Hypertensive heart and chronic kidney disease with heart failure and stage 1 through stage 4 chronic kidney disease, or unspecified chronic kidney disease; N17.9 Acute kidney failure, unspecified; N18.9 Chronic kidney disease, unspecified; I50.9 Heart failure, unspecified; E87.5 Hyperkalemia; E11.9 Type 2 diabetes mellitus without complications; E55.9 Vitamin D deficiency, unspecified; D64.9 Anemia, unspecified; R53.1 Weakness; E86.0 Dehydration; B37.2 Candidiasis of skin and nail; L98.9 Disorder of the skin and subcutaneous tissue, unspecified; B35.1 Tinea unguium; E03.9 Hypothyroidism, unspecified; E87.20 Acidosis, unspecified; E66.811 Obesity, class 1; Z79.899 Other long term (current) drug therapy
CPT/HCPCS: 36415; 71045; 76770; 80053; 81001; 82550; 82947; 83605; 83735; 84132; 85025; 85027; 93005; 93041; 93268; 94640; 94760; 96360; 96374; 96375; 99285; G0328; G0378; Q3014